=== PATIENT | female | born 1940 | race Caucasian/White ===

== ENCOUNTER 2020-06-05 12:37 | Emergency (ER) | payer OTHER ==
[~2020-06-05] VITALS: Ht 154.9 cm; Wt 54.9 kg
[2020-06-05] MEDS ORDERED: PRAVASTATIN SOD40 MG PO (13:52)
[2020-06-05] MEDS ORDERED: ASA81BEC PO (13:52)
[2020-06-05] MEDS ORDERED: FLONASE 0.05%50 MCG NARES (13:53)
[2020-06-05] MEDS ORDERED: CALCIUM CARBON500 MG PO (13:53)
[2020-06-05] MEDS ORDERED: VITAMIN C500 M2 PO (13:53)
[2020-06-05] MEDS ORDERED: LATANOPROST 0.7.5 ML OPHTHALMIC (13:54)
[2020-06-05] MEDS ORDERED: CETIRIZINE HCL5 MG PO (13:54)
[2020-06-05] MEDS ORDERED: ULTRA COQ1075 MG PO (13:54)
--- NOTE | 2020-06-05 15:58 | EKG ---
[place] [address] [facility] [place] [address] ELECTROCARDIOGRAM REPORT Name: DENPATY Room #: [facility]#: [id number] Admission: 06/05/20 Attend Phys: Discharge: Date of : 40 Report #: [id number] [facility] ED Test Date: 2020-06-05 Test Time: 13:16:48 Pat Name: PATY CRENSHAW Department: Room: Gender: F Remelter: zen : 1940 Requested By: Omari Jeronimo Order Number: [id number] MD: Adryan Galo Measurements Intervals [place] Rate: 69 P: 76 CO: 163 QRS: 45 QRSD: 90 T: 15 QT: 383 QTc: 411 Interpretive Statements Sinus rhythm Consider left ventricular hypertrophy Borderline T abnormalities, anterior leads No previous ECG available for comparison Electronically Signed On 06-05-2020 15:58:46 CDT by Adryan Galo [email or web address] <ELECTRONICALLY SIGNED> By: Adryan Galo MD, [facility] 06/05/20 1558 1316 1316 Adryan Galo MD, FACC /EPI
[2020-06-05 18:22] VITALS: BP 147/69
[2020-06-05] MEDS ORDERED: VITAMIN D3100 MCG PO (19:31)
--- NOTE | 2020-06-08 20:58 | H ---
[facility] [place] [address] HISTORY AND PHYSICAL Name: PATY CRENSHAW Room #: [facility].#: [id number] Admission: 06/05/20 Attend Phys: Discharge: 06/05/20 Date of : 40 Report #: [id number] THIS REPORT FOR: cc: FAM - Family physician unknown FAM - Family physician unknown Freeman Iglesias DO ~ DATE OF SERVICE: 06/05/2020 INPATIENT PSYCHIATRIC EVALUATION ATTENDING PSYCHIATRIST: Freeman Iglesias DO. DIRECTOR NICU: Jsameet Licona MD and his hospitalist team. REASON FOR REFERRAL: Transferred from [facility] ER for refractory anxiety, paranoia and concern there is a neurodegenerative disorder going on. SOURCES OF INFORMATION: Interview with the patient, records from [facility]. HISTORY OF PRESENT ILLNESS: This is a 79-year-old female who lives with her son in a multilevel duplex. The patient has been experiencing anxiety, severe depression and confusion for a while, but have gotten worse over the last 2 weeks. 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 Apparently, she needed to get the COVID vaccine. The patient reports she experienced a syncopal episode after the second dose of Moderna vaccination. Her son named Shun explains that they were not sure if her anxiety level has anything to do with the COVID vaccine, but more towards lack of sleep. Shun reported the patient has been getting little to no sleep at nighttime for about 2 weeks and that has most likely increased her level of anxiety. She has not been diagnosed with anxiety disorder, also reports the patient had previously been prescribed Xanax a few weeks and Xanax increase patient's level of anxiety and confusion. The son also reported the patient has obsessive-compulsive tendencies and has not taken a bath in the last 2 weeks with the expectation of using baby wipes. Son reports that the patient has extreme cases sleep deprivation, poor appetite and this was the reason for ER evaluation. labs from [facility] on 06/05. K 3, Na 131, Cr 0.5, Hg 11.7, WBC 4.7, Mag 1.6 PAST MEDICAL HISTORY: Includes hypertension, asthma, family history of obesity, diabetes mellitus. The patient was at [facility] 2 weeks ago for constipation. It was a medical admission. [facility] [address] [place] [address] HISTORY AND PHYSICAL Name: PATY CRENSHAW Room #: [facility]P [facility]#: [id number] Admission: 06/05/20 Attend Phys: Discharge: 06/05/20 Date of : 40 Report #: [id number] PAST SURGICAL HISTORY: Includes partial hysterectomy, colonoscopy. PSYCHIATRIC HISTORY: None reported. WORK HISTORY: Worked as a medical insurance claims specialist, retired in 2007. No physical, sexual or emotional abuse. SOCIAL HISTORY: Denies alcohol, tobacco, or recreational drug use. REVIEW OF SYSTEMS: From the ER: CONSTITUTIONAL: Denies fever, chills, malaise, unexplained weight change. EYES: Denies eye pain, visual change or discharge. HENT: Denies hearing changes, ear drainage, ear infections, ear pain, neck pain or neck stiffness. RESPIRATORY: Denies cough, shortness of breath, hemoptysis or respiratory distress. CARDIOVASCULAR: Denies chest pain, chest pain with exertion or edema. GASTROINTESTINAL: Denies abdominal pain, nausea, vomiting or diarrhea. GENITOURINARY: Denies burning, frequency or dysuria. MUSCULOSKELETAL: Denies back pain, joint pain, muscle weakness or myalgias. SKIN: Denies rash. NEUROLOGIC: Denies weakness, headache or loss of consciousness. Otherwise, 10-point review of systems negative. ALLERGIES: ADHESIVE TAPE, CIPROFLOXACIN, IODINE AND PIROXICAM, TETRACYCLINE, AMMONIATED MERCURY TOPICAL. MEDICATIONS: Reported medications are pravastatin 1 tab p.o. daily, aspirin 81 mg oral daily, vitamin C 500 mg p.o. oral daily, Flonase 2 sprays to the nose daily, calcium carbonate 500 mg p.o. daily, ubiquinone 200 mg p.o. daily, cetirizine, which is Zyrtec 5 mg p.o. daily; latanoprost 7.5 mL ophthalmic at bedtime. ADDITIONAL MEDICAL HISTORY: From the [facility] ER is diabetes mellitus, hypertension, irritable bowel syndrome, asthma, and hypokalemia. In the ER, she had some hypokalemia and UTI. Her physician thought it might be related to her second vaccine, since then she feels like "life has never been the same." She has been preoccupied with and was paranoid that she is going to per paperwork. Her family feels that she has been increasingly verbally aggressive, especially to her son who is her president [employer] at home. She also admits that she has been having trouble with her medication, caring for herself. Her niece, Glenys, is concerned that she may have dementia, but that has not yet been diagnosed. On my interview, the patient states she has a dog and that keeps her busy. She denies being diagnosed with dementia. Does report some memory problems over the last 6 months. [facility] [place] [address] HISTORY AND PHYSICAL Name: PATY CRENSHAW [id number] Admission: 06/05/20 Attend Phys: Discharge: 06/05/20 Date of : 40 Report #: [id number] PHYSICAL EXAMINATION: VITAL SIGNS: She is afebrile, pulse rate 90, respirations 18, BP 147/69, O2 sat 99%. GENERAL: The patient is sitting upright on a gurney. Her weight is 54.89 kilos, BMI 22.9, height 154.94 cm. LABORATORY DATA: Still pending that is COVID-19 PCR. I do not have a laboratory work from [facility] ____ pertinent positives from that when I edit the document. MENTAL STATUS EXAMINATION: This is a well-developed, fairly nourished female appearing at least stated age. Attention fair. Concentration is fair. Speech is normal rate and tone. Thought process is linear and goal directed. Thought content: Focused on ameliorating her situation. Denied SI or HI. Denied auditory, visual, or tactile hallucinations. Denied hopeless, helplessness. Mood and affect was okay euthymic, congruent, fair range. Insight and judgment are limited. Fund of knowledge is at least average. Memory was not formally tested. Once she gets up to the Geriatric Psych Unit, I will do the Geriatric depression scale as well as [facility] Mental Status Exam. FORMULATION: A 79-year-old female transferred from [facility] for evaluation of anxiety and her neurodegenerative disorder and psychosis. DIAGNOSES: At this time, unspecified psychosis, rule out neurodegenerative disorder. The patient's medical comorbidities include hypertension, diabetes mellitus, asthma, hypokalemia. PLAN: If COVID negative, admit to Geriatric Psychiatry Unit. Regarding her medications, overall her medication regimen appears clean that is the home regimen. We will hold off any more meds to get a sense of this dementia going on. I may consult a neuropsychologist. Time spent on this case about 45 minutes. STRENGTHS: In short, [place] [address] HISTORY AND PHYSICAL Name: PATY CRENSHAW Room #: DEP Jose#: [id number] Admission: 06/05/20 Attend Phys: Discharge: 06/05/20 Date of : 40 Report #: [id number] WEAKNESSES: Advanced age, multiple comorbidities. <ELECTRONICALLY SIGNED> By: Freeman Iglesias DO 06/08/202057 17 54 Freeman Iglesias, /nt
== END 2020-06-05 20:33 | disposition admitted as inpatient to this hospital (09) ==
LOC: ER 12:37
PROVIDERS: Physician Assistant
DX: F22 Delusional disorders (principal); Z20.822 Contact with and (suspected) exposure to COVID-19; E11.9 Type 2 diabetes mellitus without complications; I10 Essential (primary) hypertension; J45.909 Unspecified asthma, uncomplicated; Z79.899 Other long term (current) drug therapy; Z79.82 Long term (current) use of aspirin; Z91.048 Other nonmedicinal substance allergy status; Z88.1 Allergy status to other antibiotic agents; Z91.041 Radiographic dye allergy status

== ENCOUNTER 2020-06-05 13:22 | Inpatient (IN) | payer OTHER ==
[~2020-06-05] VITALS: Ht 157.5 cm; Wt 56.4 kg
[2020-06-05] MEDS ORDERED: ASA81BEC PO (13:52)
[2020-06-05] MEDS ORDERED: PRAVASTATIN SOD40 MG PO (13:52)
[2020-06-05] MEDS ORDERED: CALCIUM CARBON500 MG PO (13:53)
[2020-06-05] MEDS ORDERED: VITAMIN C500 M2 PO (13:53)
[2020-06-05] MEDS ORDERED: FLONASE 0.05%50 MCG NARES (13:53)
[2020-06-05] MEDS ORDERED: CETIRIZINE HCL5 MG PO (13:54)
[2020-06-05] MEDS ORDERED: LATANOPROST 0.7.5 ML OPHTHALMIC (13:54)
[2020-06-05] MEDS ORDERED: ULTRA COQ1075 MG PO (13:54)
[2020-06-05] MEDS ORDERED: VITAMIN D3100 MCG PO (19:31)
[2020-06-05 21:00] VITALS: BP 145/88
--- NOTE | 2020-06-06 00:18 | NUR ---
PATIENT BROUGHT TO UNIT BY THIS NURSE FROM ED AT 203906/05/20. PATIENT IS VERY TALKATIVE AND SHARING ABOUT HOW XANAX WAS PRESCRIBED TO HER SOME TIME BACK AND SHE TOOK A FEW TIMES. SHE WENT BACK TO HER DOCTOR AND WAS TOLD NOT TO TAKE ANY MORE DUE TO HER AGE. SHE STATES SHE HAS BEEN HAVING INCREASED ANXIETY AND UNABLE TO SLEEP. SHE STATES SHE JUST WANTS TO SLEEP. SHE IS ACCEPTING OF [facility] ADMIT AND SHE DOES HAVE DPOA. SHE IS A/0X2-3 BUT CONFUSED. HER DIAGNOSIS FOR ADMIT IS UNSPECIFIED PSYCHOSIS. PATIENT WAS UNSTEADY TRANSFERRING FROM STRETCHER IN ED TO AND WAS ASSIST X 2. ONCE GETTING TO [facility] UNIT SHE WAS A LITTLE STRONGER AND MORE STABLE TRANSFERRING FROM TO BED WITH ONE ASSIST.PATIENT WAS HELPED INTO BED AND VITALS OBTAINED. PATIENT IN NEW GOWN AND YELLOW NONSLIP SOCKS APPLIED. PT ORIENTED WHEN COMING ON UNIT TO THE FLOOR AND THEN TO HER ROOM. PATIENT DENIES PAIN/SI/HI/AVH. SHE STATES THAT SHE HAS BECOME MORE PARANOID LAST FEW WEEKS AND BECOMES AFRAID TO GO TO SLEEP BECAUSE SHE'S AFRAID SHE'S GOING TO . HER HEART SOUNDS ARE REGULAR AND S1S2 HEARD. LCTA BILATERALLY, POSITIVE BOWEL SOUNDS X 4 QUADS. LBM 06/03/20. PATIENT HAS SOME BRUISING ON RIGHT ARM/HAND FROM OLD IV STICKS. SHE HAS DRESSING ON LEFT ANTECUBITAL FROM IV REMOVAL. PATIENT HAS BEEN CONTINENT. BSC PLACED BY BED TO USE AT NIGHT WITH ASSIST D/T INCREASED WEAKNESS. SHE DID EAT BOXED LUNCH IN ED BEFORE COMING TO [facility]. SHE ATE ALL BUT CHIPS AND BROUGHT THEM WITH HER FOR HS SNACK. PATIENT HAS MED HX OF:DM, HTN, IBS, ASTHMA AND HLD. SHE DOES NOT HAVE ANY PRIOR PSYCHIATRIC DX. HER INSURANCE IS WITH [email or web address]. PT HAS A SON WHO LIVES WITH HER AT HOME. HE IS HER DPOA #1. HOOD FERRARISAUL (SON/DPOA) CALLED AND SPOKE TO THIS NURSE TO GIVE ME A LIST OF HER MEDS. 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 SHE HAS ALWAYS BEEN VERY DETAILED, INTELLIGENT, AND KEPT HERSELF AND HOME IN PRISTINE SHAPE. HE STATES THAT FOR LAST COUPLE OF MONTHS SHE HAS BEEN DECLINING. HE STATES SHE IS NOT EATING WELL, OR WALKING WELL. HE STATES THAT ON HE TOOK HER FOR A WALK AND WAS HAVING HER EXERCISE IN THE MORNING AND GETTING SOME SUN. THEN LATE AFTERNOON, HER ACTIVITY AND STRENGTH AND ABILITY TO WALK WELL DECREASES. SHE BECOMES MORE PARANOID, CONFUSED AND ANXIOUS. SHE WENT TO ED A FEW WEEKS AGO FOR CONSTIPATION AND REQUESTED AN ENEMA AND WAS TOLD THAT THEY DON'T DO ENEMAS AND SENT HER HOME. HER SISTER CAME AND GAVE HER A FLEETS ENEMA. SHE HAD LARGE RESULTS FOLLOWING THAT AND PT HAS HAD BM'S SINCE THEN. SHE STATES WHEN SHE WAS CONSTIPATED SHE FELT AWFUL AND LIKE SHE WAS GOING CRAZY. SHE IS PARANOID ABOUT GETTING CONSTIPATED AGAIN. SON ALSO STATES THAT PATIENT HAS HOME HEALTH FROM [place] COMING TO SEE HER DURING THE WEEK. SHE HAS NOT TAKEN A SHOWER/BATH FOR 2 WEEKS OR BRUSHED HER TEETH. THIS IS NOT NORMAL FOR HER PER SON. HE WAS UNSURE WHY HOME HEALTH IS COMING TO SEE HER. PATIENT HAS DX OF DM BUT DOES NOT TAKE MEDS FOR THIS. PATIENT'S HANDS BECAME SHAKY WHEN SHE BECAME MORE ANXIOUS SHE RAPIDLY TALKED ABOUT HER INSOMNIA, BOWELS, XANAX DECLINED AND WANTING SOMETHING FOR ANXIETY. PATIENT IS PLEASANT AND COOPERATIVE. STATES WE NEED TO INSTRUCT HER STEP BY STEP ON EVERYTHING SO SHE KNOWS HOW TO DO IT. VERY UNSURE OF HER ABILITIES FOR CARES. PATIENT IN BED WITH HOB SLIGHTLY ELEVATED. BED IN LOW POSITION AND BED ALARM IS ON.
[2020-06-06 07:16] LABS: CALCIUM 8.9 mg/dL (8.5-10.1); CREATININE 0.6 mg/dL (0.6-1.0); MAGNESIUM 1.8 mg/dL (1.8-2.4); POTASSIUM 3.4 mmol/L (3.5-5.1)
[2020-06-06 10:25] LABS: ABSOLUTE NEUTROPHILS 2.8 thou/uL (1.4-8.2); BASOPHILS 0.6 % (0.0-2.0); EOSINOPHILS 0.7 % (0.0-3.0); HEMATOCRIT 33.3 % (37.0-47.0); HEMOGLOBIN 11.3 gm/dL (12.0-15.0); LYMPHOCYTES 19.8 % (24.0-44.0); MCH 30.6 pg (26.0-34.0); MCV 89.9 fL (80.0-100.0); MONOCYTES 9.8 % (1.0-8.0); PLATELET COUNT 275 thou/uL (150-400); POLYS 69.1 % (36.0-66.0); RDW 14.2 % (10.5-14.5)
[2020-06-06 11:07] VITALS: BP 155/82
--- NOTE | 2020-06-06 15:11 | NUR ---
0700 ASSUMED CARE OF PATIENT. PATIENT TO DAYROOM VIA . PATIENT DID NOT EAT MUCH BREAKFAST. PATIENT PRESENT IN GROUP THIS AM. GIVING MEDICATION THIS AM WAS A PROCESS. PATIENT ASKS EMERGENCY DEPARTMENT MANAGER FOR INSTRUCTION IN TAKING MEDICATION. PATIENT STATES "HOW DO I DO THIS, DO I PUT THE PILL IN MY MOUTH THEN DRINK WATER"? THIS WAS ASKED OF THE EMERGENCY DEPARTMENT MANAGER WITH EACH PILL. PROCESS TOOK 10 MIN TO GIVE MEDICATION. PATIENT'S HANDs WERE SHAKY WHILE DRINKING WATER. PATIENT IS CALM AND QUIET.
[2020-06-06 19:30] VITALS: BP 127/70
--- NOTE | 2020-06-07 01:49 | NUR ---
PT AOX1, TO PERSON. DIFFICULTY ASSESSING ORIENTATION PT OCCUPIED WITH INTERACTION WITH ANOTHER PT. PT PLEASANT WITH INTERACTIONS. NO BEHAVIORS OF CONCERN OBSERVED. PT COMPLIANT WITH PLAN OF CARE, COOPERATIVE WITH STAFF. PT DENIES SI/HI. PT DENIES PAIN AND SOB WHILE ON ROOM AIR. PT TOLERATING PO INTAKE OF FLUIDS AND REGULAR DIET WITHOUT ISSUE. PT WITHOUT NAUSEA OR EMESIS. PT AMBULATING WITH X1 ASSIST FROM W/C TO BED AND TO TOILET. PT REPORTS NUMBNESS AND TINGLING IN BOTH HANDS. CAPILLARY REFILL LESS THAN 3SEC IN ALL EXTREMITIES. PT ENCOURAGED TO NOTIFY STAFF FOR ALL NEEDS, BED LOCKED IN LOWEST POSITION, BED ALARM ON, FREQUENT MONITORING WILL CONTINUE.
[2020-06-07 10:03] VITALS: BP 163/96
--- NOTE | 2020-06-07 18:54 | NUR ---
0700 ASSUMED CARE OF PATIENT, PATIENT IN ROOM AT THAT TIME. OUT TO DAYROOM VIA WC FOR BREAKFAST. PATIENT CALM AND QUIET. NO C/O PAIN, LS CLEAR, BS ACTIVE. MEDICATIONS GIVEN WHOLE WITHOUT DIFFICULTY. PATIENT ASSISTED TO BATHROOM WITH ASSIST X1. PATIENT COMMUNICATING WELL WITH OTHERS.
[2020-06-07 19:36] VITALS: BP 132/82
--- NOTE | 2020-06-08 04:44 | NUR ---
RECEIVED CARE OF THIS PATIENT AT 1900. PATIENT ALERT AND ORIENTED TO PERSON. UP IN W/C. GETS UP WITH ASSIST OF ONE. NO AGGRESSIVE BEHAVIOR NOTED. DENIES PAIN. SLEPT MOST OF NIGHT.
[2020-06-08 09:54] VITALS: BP 144/90
--- NOTE | 2020-06-08 15:41 | NUR ---
Justin and Dr. Chan participated in a family meeting with Pt's Chris FALL [phone].An update was given on the Pt and Dr. Chan went over medications. Dr. Jessica informed his recommendation is [facility] memory care. Justin discussed Pt's assest with the family and placement options. The family is able to pay privately and would prefer facilities in the [facility]. The family requested referral be sent to [facility] (no memory care unit) and [facility]. JUSTIN recommended that family utilize [email or web address] website to look up facilities in the area of choice. JUSTIN will continue to follow
--- NOTE | 2020-06-08 15:48 | NUR ---
ARMIN sent referral to the following [facility]
--- NOTE | 2020-06-08 17:30 | NUR ---
0700 ASSUMED CARE OF PATIENT. PATIENT CONFUSED THIS AM. DIFFICULTY GIVING MEDICATIONS. PATIENT NEEDED INSTRUCTIONS TO TAKE MEDS STEP BY STEP. PATIENT NOTED WITH INCREASED AGITATION, OLANZAPINE 2.5 PO GIVEN AT 1000. 1230 PATIENT SLEEPING IN CHAIR. 1330 PATIENT TAKEN TO ROOM AND TRANSFERED TO BED. PATIENT WOULD NOT OPEN EYES OR RESPOND TO MEDICAL TERMINOLOGIST. WHEN ARMS LIFTED PATIENT HELD ARMS IN AIR BUT WOULD NOT RESPOND. BED ALARM ON, PATIENT SLEP TILL 1505 AND TO BR VOIDED X1 WITH ASSIST X1 USING WALKER. PATIENT TO DAYROOM FOR DINNER. PATIENT REFUSED EVENING MEDS AND DINNER. STARTS RAMBLING ON ABOUT UNKNOWN SUBJECT. WILL CONTINUE TO OBSERVE
[2020-06-08 19:27] VITALS: BP 144/90
--- NOTE | 2020-06-09 05:41 | NUR ---
RECEIVED CARE OF THIS PATIENT AT 1900. PATIENT ORIENTED TO PERSON ONLY. WOULD NOT LOOK AT NURSE OR OBEY COMMANDS WHEN ASSESSMENT WAS DONE. WOULD NOT TAKE MEDS UNTIL LATER. ACTED LIKE WAS ASLEEP BUT EYES FLUTTERED IF TRYING TO KEEP CLOSED. DENIES PAIN. SLEPT MOST OF NIGHT.
[2020-06-09 08:28] VITALS: BP 156/71
[2020-06-09 15:37] VITALS: BP 156/71
--- NOTE | 2020-06-09 15:50 | NUR ---
Assumed pt care at 0700. pt was oriented to person and time. took ,meds whole. had troubles swallowing her meds. pt stated she would like to have meds crushed. Assessments complete, vss. ambulates with a w/c. participated in groups. Denies si/hi, denies pain. there no sign of acute distress noted upon assessments. pt is a fall risk, fall precaution in place. will continue to monitor.
[2020-06-09 20:02] VITALS: BP 121/65
[2020-06-09 20:06] LABS: SYPHILIS AB Non Reactive (Non Reactive)
--- NOTE | 2020-06-10 02:34 | NUR ---
Assumed care on 06/09/20 @ 1900, Seated in a theodroe chair in the day room, ambulates via walker and uses the theodore chair. Compliant with assessment and took meds crushed in pudding. Incontinent care provided, retired to bed @ HS, bed in low position, bed alarm set, will continue to monitor as per unit protocol. HRRR, Lungs CTA bilat, ABD N x 4Q. last BM reported on 06/07.
[2020-06-10 05:51] LABS: ABSOLUTE NEUTROPHILS 3.3 thou/uL (1.4-8.2); BASOPHILS 0.6 % (0.0-2.0); EOSINOPHILS 1.1 % (0.0-3.0); HEMATOCRIT 34.7 % (37.0-47.0); HEMOGLOBIN 11.9 gm/dL (12.0-15.0); LYMPHOCYTES 16.1 % (24.0-44.0); MCH 30.5 pg (26.0-34.0); MCHC 34.3 g/dL (28.0-37.0); MCV 89.1 fL (80.0-100.0); MONOCYTES 9.2 % (1.0-8.0); PLATELET COUNT 279 thou/uL (150-400); RDW 14.3 % (10.5-14.5); WBC 4.6 thou/uL (4.0-11.0)
[2020-06-10 06:20] LABS: ALBUMIN 3.4 g/dL (3.4-5.0); CALCIUM 9.3 mg/dL (8.5-10.1); CREATININE 0.7 mg/dL (0.6-1.0); MAGNESIUM 1.7 mg/dL (1.8-2.4); PHOSPHORUS 3.8 mg/dL (2.5-4.9); POTASSIUM 3.1 mmol/L (3.5-5.1); TOTAL BILIRUBIN 0.8 mg/dL (0.2-1.0)
[2020-06-10 09:55] VITALS: BP 138/73
[2020-06-10 15:01] VITALS: BP 138/73
--- NOTE | 2020-06-10 15:09 | NUR ---
ASSUMED PT CARE AT 0700. PT WAS ALERT AND ORIENTED X2. PT TOOK MEDS CRUSHED IN PUDDING. ASSESSMENTS COMPLETED, VSS. PT AMBULATES WITH W/C. DENIES SI/HI, DENIES PAIN. NO SIGN OF ACUTE DISTRESS NOTED UPON ASSESSMENTS. AT THIS TIME PT IS IN THE DAY ROOM WATCHING TV. WILL CONTINUE TO MONITOR PT
[2020-06-10 20:45] VITALS: BP 120/66
[2020-06-10 21:09] VITALS: BP 120/66
--- NOTE | 2020-06-11 00:13 | NUR ---
PATIENT HAS BEEN SITTING UP IN MARIELY CHAIR IN DINING ROOM. SHE HAS BEEN TALKING SINCE I CAME ON AT 1900. SHE DENIES PAIN. SHE IS A/0X2. SHE DENIES SI/HI BUT IS TALKING TO UNSEEN GENERAL PEOPLE ABOUT REPORTS SHE HAS DONE TODAY. SHE ALSO IS SEEING A LITTLE RED WAGON WITH A RED LIGHT ON IT ACROSS THE ROOM. SHE TALKS OF PANELS OF LIGHTS SHE SEE'S ACROSS THE ROOM. SHE GETS FRUSTRATED WHEN OTHERS DON'T SEE IT. SHE HAS FLIGHT OF IDEAS. TRYING TO ENCOURAGE WATER. TOOK HS MEDS CRUSHED IN PUDDING BECAUSE DAYSHIFT SAID SHE WAS CHEWING HER MEDS EARLIER AND COULDN'T UNDERSTAND HOW TO SWALLOW HER PILLS. PATIENT GIVEN OLANZAPINE 2.5MG PO AND TRAZADONE 25MG PO AND SHE DID SWALLOW HER MEDS WITH WATER WITHOUT A PROBLEM. PATIENT NOT WANTING TO LAY DOWN IN HER BED. SHE DOES HAVE JITTERS/SHAKES THRU BODY WHEN STAFF ARE TOUCHING HER OR WORKING WITH HER FOR CARES. THIS APPEARS TO BE RELATED TO HER BECOMING ANXIOUS WHEN PEOPLE TOUCH HER. HER SON/HOOD FALL CALLED THIS EVENING TO SPEAK WITH THIS NURSE TO SEE HOW SHE WAS DOING AND WANTED TO MAKE SURE THAT SHE WAS NOT TAKING XANAX. REASSURED HIM SHE WAS NOT TAKING THE MED. PATIENT RECLINED IN MARIELY CHAIR. CHAIR LOCKED AND CHAIR ALARM ON. PATIENT APPEARS TO BE CALMING SOME SINCE LAST MED GIVEN TO HER. CONTINUING TO MONITOR.
[2020-06-11 09:32] VITALS: BP 155/93
[2020-06-11 12:29] VITALS: BP 155/93
--- NOTE | 2020-06-11 14:49 | NUR ---
ASSUMED PT CARE AT 0700. PT WAS ORIENTED TO SELF. TOOK MEDS CRUSHED IN PUDDING. ASSESSMENTS COMPLETED. B/P WAS HIGH 181/101, 2nd B/P 155/93. THERE IS NO SIGN OF ACUTE DISTRESS NOTED UPON ASSESSMENTS. THERE IS NO SIGN OR C/O OF PAIN NOTED. AMBULATES WITH A W/C. PT IS SLEEP DEPRIVED, HYPER VERBAL. PT HAVE BEEN HALLUCINATING MOST OF THE DAY. PT IS TALKING AND RESPONDING TO AN UNSEEN PERSON. PT OCCASIONALLY JERKS. AT THIS TIME PT IS TALKATIVE.
[2020-06-11 19:10] VITALS: BP 141/67
[2020-06-11 19:45] VITALS: BP 141/67
--- NOTE | 2020-06-12 02:22 | NUR ---
PATIENT WAS LAYING IN MARIELY CHAIR IN DINING ROOM THIS EVENING. SHE DID NOT LOOK LIKE SHE WAS COMFORTABLE. PATIENT COMBATIVE AND YELLING AT THIS NURSE WHEN WANTING TO HELP HER GET REPOSITION. PATIENT HAS NOT SLEPT FOR 2 NIGHTS OR DAYS. PATIENT MORE AGITATED TONIGHT. SHE WAS HAVING HARD TIME RELAXING HER BODY TO URINATE AND ABDOMEN WAS FIRM. SHE REFUSED TO SIT ON COMMODE. ASSISTED PATIENT X2 TO BED AND MADE COMFORTABLE. SHE HAD REFUSED ALL HER HS MEDS AND ANYTHING BY MOUTH. PATIENT HAD TREMORS THRU OUT BODY ALL EVENING D/T NO SLEEP AND SO TENSE. VSS. ONCE IN BED PATIENT RELAXED AND VOIDED. INCONTINENCE CARES DONE PRN. PATIENT SLEEPING AT THIS TIME. DR YANG NOTIFIED OF PATIENT REFUSING MEDS AND NOT EATING OR DRINKING TODAY. PATIENT IS SLEEPING AT THIS TIME. NO SIGNS OF SI/HI/AVH TONIGHT. BED IN LOW POSITON AND BED ALARM IS ON. ROUTINE ROUNDS TO ASSESS SAFETY AND STATUS OF PATIENT.
--- NOTE | 2020-06-12 05:44 | NUR ---
PATIENT WAS LAYING IN BED AWAKE AND NO COVERS ON WHEN DID ROUND AT 0515. PATIENT IS ALERT. SHE IS AT BASELINE OF WHEN I SAW HER ON INTAKE IN ER A COUPLE OF DAYS AGO. SHE STATES SHE DOESN'T REMEMBER WHERE SHE'S AT BUT SHE'S SURE EVERYONE IS TAKING GOOD CARE OF HER. INCONTINENCE CARES DONE AGAIN. BARRIER CREAM APPLIED TO SMALL EXCORIATED AREA ON LEFT BUTTOCK. PATIENT RESTING UNDER HER COVERS. SHE SHAKES AT TIMES. SHE STATES SHE IS COLD BUT SHAKES WHEN SHE'S ANXIOUS TOO. PATIENT KEEPS TELLING THIS NURSE AND SECURITY TECH TO JUST TELL HER WHAT SHE NEEDS TO DO. UNSURE OF HERSELF IN MAKING MINIMAL DECISIONS. VERY EAGER TO PLEASE. PATIENT STILL APPEARS TENSE IN BODY WHEN AWAKE. ENCOURAGING PATIENT TO RELAX USING IMAGERY OF HER FAVORITE PLACE TO VISIT. PATIENT VERY COOPERATIVE AND PLEASANT. SEEMS MORE COHERENT THAN LAST 2 DAYS. LAB CAME TO DRAW LABS. PATIENT WHEN SHE FIRST AWOKE DID SAY SHE WAS THIRSTY AND WANTED TO KNOW IF OK TO HAVE WATER. WATER CONTAINER FILLED UP AND PATIENT DID DRINK DOWN SOME WATER BEFORE WANTING TO LAY BACK DOWN AND GET WARM UNDER THE COVERS. BED IN LOW POSITION AND BED ALARM IS ON. CONTINUING TO MONITOR.
[2020-06-12 06:09] LABS: ABSOLUTE NEUTROPHILS 3.2 thou/uL (1.4-8.2); BASOPHILS 0.6 % (0.0-2.0); EOSINOPHILS 1.9 % (0.0-3.0); HEMATOCRIT 33.2 % (37.0-47.0); HEMOGLOBIN 11.3 gm/dL (12.0-15.0); MCH 30.5 pg (26.0-34.0); MCV 89.9 fL (80.0-100.0); MONOCYTES 8.7 % (1.0-8.0); PLATELET COUNT 254 thou/uL (150-400); POLYS 72.8 % (36.0-66.0); RBC 3.69 mil/uL (4.20-5.00); RDW 14.2 % (10.5-14.5); WBC 4.4 thou/uL (4.0-11.0)
[2020-06-12 06:18] LABS: ALBUMIN 3.5 g/dL (3.4-5.0); CALCIUM 9.4 mg/dL (8.5-10.1); CREATININE 0.8 mg/dL (0.6-1.0); MAGNESIUM 1.9 mg/dL (1.8-2.4); PHOSPHORUS 3.9 mg/dL (2.5-4.9); POTASSIUM 3.9 mmol/L (3.5-5.1); TOTAL BILIRUBIN 1.1 mg/dL (0.2-1.0); TOTAL PROTEIN 6.9 g/dL (6.4-8.2)
[2020-06-12 09:10] VITALS: BP 122/82
--- NOTE | 2020-06-12 09:35 | NUR ---
Alert and orientated to person and place--knows she is in hospital but does not know name. Denies SI/HI. Slightly anxious but is cooperative and compliant. Had alot of difficulty swallowing potassium, cut in fourths and took with container of applesauce and 240 cc of H2O. Rest of meds crushed. Breath sounds clear. Reg HR auscultated. Color pink with brisk capillary refill and palpable peripheral pulses. Brief dry but incontinent t/o night per report. Active bowel sounds over soft, rounded abdomen. Able to bear wt but needs help transferring. Red, superficial wound per R buttock, cleaned with NS and Zpaste applied. Currently sleeping in [facility] in day room.
[2020-06-12 19:13] VITALS: BP 115/66
[2020-06-13 01:43] VITALS: BP 115/66
--- NOTE | 2020-06-13 01:49 | NUR ---
Assumed care on 06/12/20 @ 1900, seated in a theodore chair in the day room. Family member Shun called, and they spoke. A&Ox4, Pleasant affect noted. Compliant with assessment and cooperative with medication administration. 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 Retired to bed @ HS, bed in low position, bed alarm set. Will continue to monitor for safety and comfort as per unit protocol.
--- NOTE | 2020-06-13 08:37 | NUR ---
RT Progress Note- Mary's participation in the milieu and in recreation therapy groups has been inconsistent since her admission. Mary was able to be present in groups and engage moderately during first few days of admission, however later became unable to engage displaying behaviors such as loudly rambling (upsetting to peers) thoughts while present, restlessness and inability to remain seated, and shaking. As of yesterday, 06/12, Mary appeared more alert and was able to be present in group without the following behaviors. She has not engaged to level she did at admission. INSTRUCTOR WEAVING will encourage pt's continued progress towards baseline participation.
[2020-06-13 11:00] VITALS: BP 125/74
--- NOTE | 2020-06-13 14:55 | NUR ---
0700 ASSUMED CARE OF PATIENT, PATIENTSLEEPING IN MARIELY CHAIR. VS BP-108/64 P-96 R-16 T 97.1 O2 SATS 99% BLOOD SUGAR 95. MEDICATIONS NOT GIVEN THIS AM PATIENT SLEEPING AT TIME OF MED PASS. OT HERE TO WORK WITH PATIENT, AFTER TALKING TO DR MACIAS MEDICATION GIVEN LATE. AT 1155 BP 125/74 P 115 . MEDICATIONS GIVEN AT 1200. PATIENT TOLERATED MED WHOLE WITH APPLESAUCE AND SIPS OF H2O. PATIENT TO ROOM FOR WOUND CARE CHECK WITH ADDY MONTAÑO. PATIENT BACK TO CHAIR X 1 ASSIST AND OUT TO DAYROOM. PATIENT PRESENT IN AFTERNOON GROUP.
[2020-06-13 19:46] VITALS: BP 108/69
--- NOTE | 2020-06-14 06:57 | NUR ---
Assumed care on 06/13/20 @ 1900, A&Ox4, confusion and hallucinations noted (MICHELLE/HV). Incontinent of B&B, is a high fall risk, uses a wheel chair and a theodore chair. Takes meds crushed in pudding, cooperates with medication administration. cooperates with assessment, HRRR, Lungs CTA, ABD N bowel sounds over a flat abdomen. Slept overnight in bed and seemed to sleep well. Bed in low position, bed alarm set.
[2020-06-14 09:28] VITALS: BP 145/89
--- NOTE | 2020-06-14 13:59 | NUR ---
Referral sent to: [facility]- has accepted the Pt
[2020-06-14 19:44] VITALS: BP 117/71
--- NOTE | 2020-06-14 20:16 | NUR ---
0700 ASSUMED CARE OF PATIENT. PATIENT IN MARIELY CHAIR SLEEPING OFF AND ON TODAY. MEDICATIONS TAKEN CRUSHED IN PUDDING WITHOUT DIFFICULTY. DENIES PAIN, DENIES SI/HI. INCREASED ANXIETY NOTED WHEN ATTEMPTING TO STAND AND TRANSFER OR AMB WITH WALKER. PATIENT NOTED SHAKING AT TIMES.
[2020-06-15 10:30] VITALS: BP 110/51
--- NOTE | 2020-06-15 12:18 | NUR ---
PT ALERT AND ORIENTED TIMES FOUR. VSS. PT DENEIS PAIN/SOA. PT DENIES SI/HI/AH/VH. PT TOLERATES MEDS ABD MEALS. PT INTERACTS WITH STAFF AND PEERS. PT PROGRESSING TOWRADS GOALS.
--- NOTE | 2020-06-15 17:54 | NUR ---
ARMIN spoke with Chris concerning placement. They have an interview @1300 with [facility]. [facility] has accepted the Pt. ARMIN will follow up.
[2020-06-15 19:37] VITALS: BP 132/80
[2020-06-15 21:53] VITALS: BP 132/80
--- NOTE | 2020-06-16 00:50 | NUR ---
Assumed care on 06/15/20 @ 1900, A&Ox4. Pleasant affect noted. Seated in a theodore chair resting with eyes closed with a cozy blanket wrapped around her. Son Shun called, and she spoke to him on the phone. Denies SI/HI, Anxiety and Depression. Denies AH/VH. Cooperative with assessment and compliant with medication, taking meds crushed in pudding.
[2020-06-16 09:06] VITALS: BP 134/73
--- NOTE | 2020-06-16 18:38 | NUR ---
0700 ASSUMED CARE OF PATIENT. PATIENT IN MARIELY CHAIR AWAKE AND ALERT. PATIENT ORIENTED X4, NO C/O PAIN. LS CLEAR, BS ACTIVE. MEDICATION TAKEN CRUSHED WITH PUDDING WITHOUT DIFFICULTY. TO BR VIA MARIELY CHAIR. PATIENT NEEDS ENCOURAGEMENT TO STAND USING WALKER AND TRANSFER TO [facility]. ASSIST X1 PATIENT SHAKY UNTIL UP AND FEELS BALANCED THEN PROCEEDS TO SLOWLY MOVE TOWARD BSC. VOIDED X300 CINTIA COLORED URINE. PATIENT STATED "I WAS NOT SURE EARLIER IF I NEEDED TO GO BUT THEN I HAD SOME DISCOMFORT AND KNEW I SHOULD PROBABLY GO TO BATHROOM". PATIENT BACK TO CHAIT AND OUT TO DAYROOM. SLEEPS OFF AND ON IN CHAIR. CHAIR ALRM IN PLACE.
[2020-06-16 19:39] VITALS: BP 109/57
--- NOTE | 2020-06-17 02:48 | NUR ---
PATIENT HAD A FLAT AFFECT, POOR EYE CONTACT, FAIR GROOMING AND HYGIENE. PATIENT HAD HIGH ANXIETY. PATIENT REQUEST SLEEPING AIDE. PATIENT DENIED PAIN OR DISCOMFORT. PATIENT NEEDS MAXIMUM ASSISTANCE WITH ADL, BED MOBILITY, TRANSFER AND TOILETING. FALL PRECAUTION IN PLACE. PATIENT IN BED ASLEEP AT THIS TIME BREATHING REGULAR AND UNLABOURED.
[2020-06-17 08:54] VITALS: BP 124/80
--- NOTE | 2020-06-17 18:07 | NUR ---
ARMIN sent updates to [facility], ARMIN received a completed fax confirmation.
[2020-06-17 19:13] VITALS: BP 123/68
--- NOTE | 2020-06-17 19:52 | NUR ---
0700 ASSUMED CARE OF PATIENT, PATIENT IN BED AT THAT TIME. PATIENT TO DAYROOM IN [facility]. PATIENT CALM AND COOPERATIVE. MEDICATIONS TAKEN CRUSHED WITHOUT DIFFICULTY. NO C/O PAIN, LS CLEAR, BS ACTIVE. PATIENT C/O CONSTIPATION. JANEEN ORDER FOR [facility]IRAL[facility]. PATIENT HAD LG BM TODAY.
--- NOTE | 2020-06-18 02:15 | NUR ---
PT LYING IN BED. DENIES PAIN. FREQUENT OBSERVATION.
[2020-06-18 08:53] VITALS: BP 125/59
--- NOTE | 2020-06-18 17:37 | NUR ---
SWspoke with Pt's son/DPOA, Shun, concerning discharge. Shun informed they have secured placement with [facility]. That Pt's room will be set up on Thursday. ARMIN confirmed this information with Yaz at [facility]. Pt will d/c 06/19/20 @ 1300. [facility] will transport the Pt
[2020-06-18 19:34] VITALS: BP 119/61
--- NOTE | 2020-06-19 01:59 | NUR ---
ASSESSED PT AT START OF SHIFT, EVENING MEDS GIVEN AND PT TOLERATED IT WELL. UP WITH A WALKER. DENIES PAIN. PT CALM AND COPERATIVE TONIGHT WITH CARE. FALL PREC IN PLACE AND WILL CONT TO MONITOR.
[2020-06-19 08:54] VITALS: BP 113/64
--- NOTE | 2020-06-19 10:48 | NUR ---
WOUND CARE F/U; DISCHARGE IS LIKELY TODAY. THE LEFT HEEL IS FRAGIALLY HEALED. KEEP A SMALL BORDERED FOAM, CHANGE M/W/F PRN. NO S/S OF INFECTION. RECCOMMENDATION; NO CHANGES. DISCUSSED WITH [facility]
[2020-06-19] MEDS ORDERED: CLARITIN10 MG PO (11:51)
[2020-06-19] MEDS ORDERED: LIPITOR10 MG PO (11:52)
[2020-06-19] MEDS ORDERED: METOPROLOL SUCC50 MG PO (11:52)
[2020-06-19] MEDS ORDERED: SEROQUEL 25 MG25 M1 PO (11:53)
[2020-06-19] MEDS ORDERED: KLOR-CON 10 ER10 MEQ PO (11:54)
[2020-06-19] MEDS ORDERED: MIRALAX17 GM PO (11:54)
[2020-06-19] MEDS ORDERED: B-12500 MCG PO (11:55)
[2020-06-19] MEDS ORDERED: FOLIC ACID1 MG PO (11:55)
--- NOTE | 2020-06-19 16:44 | NUR ---
0700 ASSUMED CARE OF PATIENT, PATIENT SITTING IN DAYROOM AT THAT TIME. PATIENT IS CALM AND COOPERATIVE. NO C/O PAIN. LS CLEAR, BS ACTIVE. MEDICATIONS TAKEN WHOLE WITHOUT DIFFICULTY. PATIENT SMILING AND HAPPY TO BE DISCHARGING TODAY. PATIENT PRESENT IN GROUPS. AT NOON PATIENT DRESSED AND READY FOR DC. 1330 MED TRANSPORT HERE. PATIENT DC VIA WC WITH TRANSPORT AND STAFF ACCOMPANIED TO VEHICLE. BELONGINGS AND PACKET IN HAND. 1350 REPORT CALLED TO GRACE AT [facility].
--- NOTE | 2020-06-20 08:28 | D ---
[facility] [place] [address] DISCHARGE SUMMARY Name: PATY CRENSHAW Room #: 524B-B [facility] IN M.R.#: [id number] Admission: 06/05/20 Attend Phys: Freeman Iglesias DO Discharge: 06/19/20 Date of : 40 Report #: [id number] THIS REPORT FOR: cc: FAM - Family physician unknown FAM - Family physician unknown Freeman Iglesias DO ~ DATE OF SERVICE: 06/19/2020 INPATIENT PSYCHIATRIC DISCHARGE SUMMARY ATTENDING PSYCHIATRIST: Freeman Iglesias DO. PLASTERER ROUGH AT THE TIME OF DISCHARGE: Keyshawn Ellison MD DISCHARGE DIAGNOSES: Major neurocognitive disorder, unspecified etiology with behavioral disturbance, improved. Medical comorbidities including psychosis, improved; anemia, stable; severe B12 deficiency, being replaced; diet-controlled diabetes mellitus; bronchial asthma; irritable bowel syndrome. DISCHARGE PLAN: The patient discharged to [facility], psychiatric and medical care to be provided by receiving facility. DISCHARGE MEDICATIONS: Aspirin 81 mg oral daily for hypertension, vitamin C 500 mg oral daily supplementation. Latanoprost/PF 0.005% eye drop each eye at bedtime 7.5 mL drops, loratadine 10 mg oral daily for allergic rhinitis, atorvastatin 10 mg oral daily for hyperlipidemia; metoprolol succinate 50 mg tablet in the ER for hypertension, hold if heart rate less than 60; Seroquel 62.5 mg oral daily 3 times a day at 0900, 1700, 2100 for psychosis and mood stabilization, potassium chloride 10 mEq oral daily supplementation, polyethylene glycol 17 grams oral daily for bowel motility, B12 of 1000 mcg oral daily at 0900. Recommend rechecking blood level in 2 months, folic acid 1 mg oral daily. The patient has activity level as tolerated. She ambulates with min assist and a walker. DIET: Regular with two Ensure Enlive daily. LABORATORY DATA: Most recent laboratories on 06/12/2020, H and H of 11.3 and 33.2, white count 4.4, platelets 254. Sodium on 06/12/2020 of 141, potassium 3.9, chloride 104, bicarbonate 27, anion gap 10, BUN 17, creatinine 0.8, estimated GFR 69, glucose 94, calcium 9.4, phosphorus 3.9, magnesium 1.9, total bilirubin 1.1, AST 24, ALT 26, alkaline phosphatase 56, total protein 6.9, albumin 3.5. Vitamin B12 level absolutely low at 101. Vitamin D level was normal at 40.4. Folate was 9.8. TSH normal at 3.242. COVID-19 serology was negative. Syphilis serology was nonreactive. We did do a head CT as part of a dementia workup. Findings were no acute abnormalities, mild age appropriate symmetrical cerebral volume loss. [address] [address] DISCHARGE SUMMARY Name: VONDASAULPATY J Room #: 524B-B [facility] IN M.R.#: [id number] Admission: 06/05/20 Attend Phys: Freeman Iglesias, DO Discharge: 06/19/20 Date of : 40 Report #: [id number] REASON FOR ADMISSION: Back around 06/05/2020 or so is as follows: A 79-year-old female, she lives at home with a disabled son. [facility] was concerned as the patient was showing signs of dementia; her niece Glenys is concerned that she may be having dementia as well. She has been increasingly verbally aggressive. HOSPITAL COURSE: The patient was admitted to the Geriatric Psychiatry Unit. We titrated her on Seroquel regimen. She stayed well with that. SLUMS was done with the testing in the teens, I believe the patient does need 24-hour memory care that took a little while to get sorted out but at the day of discharge, the patient was not suicidal or homicidal. PHYSICAL EXAMINATION: VITAL SIGNS: On the day of discharge, temperature 36.6, pulse 81, respirations 18, BP 113/64, O2 sat 100%. MUSCULOSKELETAL: Gait not tested. Hair was braided. Fair to good hygiene. MENTAL STATUS EXAMINATION: Attention limited. Concentration fair. Speech is normal in rate, volume and tone. Thought process is linear and goal directed. Thought content, relative poverty of thought. Did state she was glad she was discharging to [facility]. Mood and affect were congruent, euthymic, happy. Denied SI or HI. Denied auditory, visual, or tactile hallucinations. Memory not formally tested. Insight limited. Judgment limited. Fund of knowledge, no greater than average. PROGNOSIS: For this patient is guarded given age of 79, having a neurodegenerative disorder. <ELECTRONICALLY SIGNED> By: Freeman Iglesias DO 06/20/20 [id number] Freeman Iglesias DO /nt
== END 2020-06-19 13:30 | DRG 884 ==
LOC: SBH
PROVIDERS: Internal Medicine; Nurse Practitioner Family; ADMIT Psychiatry & Neurology Psychiatry; ATTEND Psychiatry & Neurology Psychiatry
DX: F01.51 Vascular dementia, unspecified severity, with behavioral disturbance (principal); F29 Unspecified psychosis not due to a substance or known physiological condition; E11.9 Type 2 diabetes mellitus without complications; I10 Essential (primary) hypertension; E78.5 Hyperlipidemia, unspecified; D64.9 Anemia, unspecified; E53.8 Deficiency of other specified B group vitamins; E83.42 Hypomagnesemia; J45.909 Unspecified asthma, uncomplicated; E87.6 Hypokalemia; K58.9 Irritable bowel syndrome, unspecified; Z88.1 Allergy status to other antibiotic agents; Z88.8 Allergy status to other drugs, medicaments and biological substances; Z91.09 Other allergy status, other than to drugs and biological substances
CPT/HCPCS: 10880